=== PATIENT | female | born 1995 | race Caucasian/White ===

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

== ENCOUNTER 2017-04-20 11:08 | Emergency (ER) | payer OTHER ==
[~2017-04-20] VITALS: Ht 167.6 cm; Wt 57.0 kg
[~2017-04-20 11:08] MED LIST: BCPILLS PO; MONT1TAB5 PO
[2017-04-20 11:12] VITALS: TEMP 36.5; Ht 167.6 cm; Wt 57.0 kg
[2017-04-20] MEDS ORDERED: ONDANSETRON INJ 2 MG/ML 2 ML VIAL IV STA (11:47)
[2017-04-20] MEDS ORDERED: MoRPHine SULFATE 4 MG/ML 1 ML CARP\\VIAL IV STA (11:47)
[2017-04-20] MEDS ORDERED: SODIUM CHLORIDE 0.9% 1000ML 1,000 ML IV STA (11:47)
[2017-04-20 12:26] LABS: BASO % 0.5 %; BASO ABS # 0.03 K/uL (0-0.2); COMPLETE YES; HEMATOCRIT 38.8 % (37-47); IG% 0.2 %; LYMPH % 29.8 %; LYMPH ABS # 1.65 K/uL (1.2-3.4); MEAN CORPUSCULAR HEMOGLOBIN 30.2 pg (25-34); MEAN CORPUSCULAR HGB CONC 35.1 g/dl (32-36); MEAN PLATELET VOLUME 10.8 fL (7.4-10.4); MONO % 8.5 %; PLATELET COUNT 191 K/uL (130-400); RED BLOOD COUNT 4.51 M/uL (4.2-5.4); WHITE BLOOD COUNT 5.54 K/uL (4.8-10.8)
[2017-04-20 12:28] LABS: PREG INTERNAL NEGATIVE QC NEG CLEAR BACKGROUND; PREG INTERNAL POSITIVE QC POS CONTROL LINE
[2017-04-20 12:37] LABS: URINE APPEARANCE CLEAR (CLEAR); URINE BILIRUBIN NEG (NEG); URINE COLOR DK YELLOW; URINE EPITHELIAL CELL AUTO >30 /lpf (0-5); URINE NITRITE NEG (NEG); URINE PH 8.5 (4.5-7.5); URINE SPECIFIC GRAVITY 1.023 (1.000-1.030); UROBILINOGEN NEG (NEG)
[2017-04-20 12:47] LABS: MANUAL MICROSCOPIC REQUIRED? NO; REVIEW REQ? NO; SULFASALICYLIC ACID NEG (NEG)
[2017-04-20 12:49] LABS: BUN/CREATININE RATIO 19.7 (10-20); CALCIUM 8.8 mg/dl (8.5-10.1); CREATININE 0.73 mg/dl (0.60-1.20); POTASSIUM 3.6 mmol/L (3.5-5.1)
--- NOTE | 2017-04-20 12:51 | DIAGNOSTIC IMAGING REPORT ---
PA CHEST WITH ABDOMINAL SERIES CLINICAL HISTORY: Generalized abdominal pain. FINDINGS: A PA chest radiograph is obtained. No prior studies are available for comparison at the time of dictation. The cardiomediastinal silhouette is unremarkable. The lungs and pleural spaces are clear. No pneumothorax is seen. The bony thorax is grossly intact. There is mild S-shaped thoracolumbar scoliosis. Supine and erect abdominal radiographs are obtained. No prior studies are available for comparison at the time of dictation. There is a nonobstructed abdominal bowel gas pattern. Moderate to severe constipation is noted. No evidence of intraperitoneal free air is seen. There are no abnormal abdominal calcifications. The lumbosacral spine and bony pelvis appear intact. IMPRESSION: 1. No active disease in the chest. 2. Nonobstructed abdominal bowel gas pattern noting moderate to severe constipation. Electronically signed by: Fernando Reyes M.D. 04/20/2017 12:49 PM Dictated Date/Time: 04/20/2017 12:48 PM
--- NOTE | 2017-04-20 13:41 | DIAGNOSTIC IMAGING REPORT ---
PELVIC COMPLETE NON OB CLINICAL HISTORY: ABDOMINAL PAIN/N/V/D PAIN. NAUSEA. COMPARISON STUDY: 07/08/2016 FINDINGS: The uterus measured 6.9 cm. The endometrial stripe measured 8 mm. The right ovary measured 2.5 cm with normal vascular flow The left ovary measured 2.6 cm with normal vascular flow. There is no ultrasonographic evidence of ovarian torsion. It should be noted that ovarian torsion can be present with normal Doppler ultrasonographic findings. There was no evidence of pathologic free pelvic fluid. IMPRESSION: Negative pelvic ultrasound The above report was generated using voice recognition software. It may contain grammatical, syntax or spelling errors. Electronically signed by: Vik Drew M.D. 04/20/2017 1:40 PM Dictated Date/Time: 04/20/2017 1:39 PM
[2017-04-20 13:45] VITALS: BP 96/60; PULSE 67; O2SAT 98
--- NOTE | 2017-04-20 17:13 | EMERGENCY ROOM VISIT NOTE ---
ED Visit Note First contact with patient: 11:37 Chief Complaint: I'm having stomach and chest pain. History of Present Illness: Ms. Calderon is a 22 year-old white female who ambulates into the ED complaining of suprapubic abdominal pain and chest pain. Historically patient reports no significant gastrointestinal diseases or abdominal surgeries. Patient reports a acute onset of suprapubic abdominal pain that started approximately 1.5 hours ago. Since that time the pain has been constant. The pain is currently described as sharp. The pain is radiating superiorly through the mid abdomen and into her chest. She rates her discomfort 7/10. She reports her pain worsens when she is lying supine on her back and has minimal relief when she is lying on the right side of her body. She has not taken any medication for pain prior to arrival at the hospital. She denies any associated symptoms including fevers, chills, sweats, skin eruptions, skin color changes, upper respiratory tract symptoms, shortness of breath, palpitations, orthopnea, dependent edema, previous clots, claudication, cramping , recent surgery/inactivity/extended travel, estrogen/tobacco use, decreased appetite, nausea, vomiting, diarrhea, constipation, rectal bleeding, black/ tarry stools, urinary symptoms, hematuria, vaginal bleeding, vaginal discharge, back/flank pain. On reevaluation of the patient after testing she does report she has not moved her bowels in the last 4 days. Review of Systems: As noted above in history of present illness. All body systems were reviewed and found to be negative as noted above. Past Medical History: Pneumonia. Current Medications: Patient denies. Allergies to Medications: Patient denies. 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 Physical Examination: Vital Signs: Date Time Temp Pulse Resp B/P (MAP) Pulse Ox O2 Delivery O2 Flow Rate FiO2 04/20/17 13:45 67 16 96/60 98 04/20/17 12:13 72 04/20/17 11:12 36.5 61 24 109/71 100 Room Air GENERAL: 22-year-old female in moderate distress due to pain, nontoxic-appearing , afebrile and hemodynamically stable. Patient was found lying on the bed writhing in discomfort. NEUROLOGICAL: Awake, alert and oriented to person, place and time. Answering questions appropriately and following commands. Normal gait. Good hand eye coordination. SKIN: Warm, dry and pink. No soft tissue eruptions or trauma noted. HEENT: Atraumatic and normocephalic. PERRLA. Sclera white and conjunctiva pink. Oral cavity moist and pink. Pharynx is nonerythematous or edematous. Speech normal. No lymphadenopathy. Trachea midline. No jugular venous distention. BACK: No tenderness over the bony spine. No CVA tenderness. THORAX: Lungs sounds are clear to auscultation and equal bilaterally with symmetrical chest wall. No wheezing, rales or rhonchi. No crepitus, tenderness , subcutaneous air or deformities noted. HEART: Regular rate and rhythm. No gallops, rubs or murmurs are appreciated. ABDOMEN: Flat, soft and nontender. Positive bowel sounds in all quadrants. No guarding, rigidity or organomegaly. EXTREMITIES: Moves all extremities well on command and with purpose. All distal neurovascular statuses are intact and equal bilaterally. ED Course: Patient is assessed as noted above. Laboratory Testing: Test 04/20/17 11:25 04/20/17 11:35 04/20/17 12:12 Range/Units Urine Color DK YELLOW Urine Appearance CLEAR CLEAR Urine pH 8.5 4.5-7.5 Urine Specific [place] 1.023 1.000-1.030 Urine Protein NEG NEG Urine Glucose (UA) NEG NEG Urine Ketones TRACE NEG Urine Occult Blood NEG NEG Urine Nitrite NEG NEG Urine Bilirubin NEG NEG Urine Urobilinogen NEG NEG Urine Leukocyte Esterase TRACE NEG Urine WBC (Auto) 1-5 0-5 /hpf Urine RBC (Auto) 0-4 0-4 /hpf Urine Hyaline Casts (Auto) 5-10 0-5 /lpf Urine Epithelial Cells (Auto) >30 0-5 /lpf Urine Bacteria (Auto) NEG NEG White Blood Count 5.54 4.8-10.8 K/uL Red Blood Count 4.51 4.2-5.4 M/uL Hemoglobin 13.6 12.0-16.0 g/dL Hematocrit 38.8 37-47 % Mean Corpuscular Volume 86.0 80-100 fL Mean Corpuscular Hemoglobin 30.2 25-34 pg Mean Corpuscular Hemoglobin Concent 35.1 32-36 g/dl Platelet Count 191 130-400 K/uL Mean Platelet Volume 10.8 7.4-10.4 fL Neutrophils (%) (Auto) 59.0 % Lymphocytes (%) (Auto) 29.8 % Monocytes (%) (Auto) 8.5 % Eosinophils (%) (Auto) 2.0 % Basophils (%) (Auto) 0.5 % Neutrophils # (Auto) 3.27 1.4-6.5 K/uL Lymphocytes # (Auto) 1.65 1.2-3.4 K/uL Monocytes # (Auto) 0.47 0.11-0.59 K/uL Eosinophils # (Auto) 0.11 0-0.5 K/uL Basophils # (Auto) 0.03 0-0.2 K/uL RDW Standard Deviation 39.0 36.4-46.3 fL RDW Coefficient of Variation 12.4 11.5-14.5 % Immature Granulocyte % (Auto) 0.2 % Immature Granulocyte # (Auto) 0.01 0.00-0.02 K/uL Sodium Level 138 136-145 mmol/L Potassium Level 3.6 3.5-5.1 mmol/L Chloride Level 106 98-107 mmol/L Carbon Dioxide Level 23 21-32 mmol/L Anion Gap 10.0 3-11 mmol/L Blood Urea Nitrogen 14 7-18 mg/dl Creatinine 0.73 0.60-1.20 mg/dl Est Creatinine Clear Calc Drug Dose 110.6 ml/min Estimated GFR () 137.4 Estimated GFR (Non- 118.6 BUN/Creatinine Ratio 19.7 10-20 Random Glucose 81 70-99 mg/dl Calcium Level 8.8 8.5-10.1 mg/dl Total Bilirubin 1.6 0.2-1 mg/dl Direct Bilirubin 0.3 0-0.2 mg/dl Aspartate Amino Transf (AST/SGOT) 16 15-37 U/L Alanine Aminotransferase (ALT/SGPT) 15 12-78 U/L Alkaline Phosphatase 57 45-117 U/L Total Protein 7.3 6.4-8.2 gm/dl Albumin 3.9 3.4-5.0 gm/dl Lipase 122 73-393 U/L Human Chorionic Gonadotropin, Qual NEG NEG Bedside Troponin I < 0.030 0-0.045 ng/ml Acute Abdominal X-Ray Series: Was read by myself and the radiologist showing a normal appearing PA chest with no signs of infiltrates, effusions or pneumothorax. Normal heart silhouette and bony anatomy. Radiologist noted a mild S-shaped scoliosis. Abdominal component shows a nonobstructive bowel gas pattern, no free air and moderate to severe constipation. Pelvic Ultrasound: Was reviewed by myself and read by the radiologist showing a negative pelvic ultrasound with normal-appearing uterus, endometrial stripe, ovaries with normal vascular flow and no evidence of free pelvic fluid. EKG: Was read by myself and shows normal sinus rhythm with a ventricular rate of 63 bpm. She does have sinus arrhythmia. No acute ST changes indicating ischemia, injury or infarction. Medical records were reviewed and no previous EKGs were on file for comparison. Patient was hydrated with normal saline and received 4 mg of Zofran IV and 4 mg of morphine IV. Patient was reassessed multiple times during her stay in the emergency department. Patient's case was reviewed with Dr. Christopher; we agreed on diagnostic approach, treatment, disposition and plan. On my last reassessment of the patient she felt her pain was slightly more intense on the right than the left. On reevaluation of her abdomen remained soft and pain-free. Patient was educated about today's findings and instructed on her treatment plan ; she verbalizes understanding and agreement with this plan. Clinical Impression: Pelvic pain. Chest pain. Constipation. Decision-Making: Initially my differential diagnosis I considered ovarian cyst rupture, ovarian torsion, ectopic , appendectomy, bowel obstruction, constipation, pneumothorax, pericarditis and other causes. Disposition: Patient discharged home in stable condition; prior to departure she was reassessed and subjectively reported she was feeling much better and rated her discomfort 2/10. Plan: Patient was encouraged to alternate ibuprofen and acetaminophen every 6 hours as needed for pain. Patient was encouraged to continue any other prescribed medications. Patient was encouraged use [id number] Colace and MiraLAX; she was instructed on their use. Patient was encouraged to stay well-hydrated with increased clear fluids and increase dietary fruits and fibers. Patient was encouraged to follow-up at [facility] for recheck tomorrow and if she was unable to follow-up for recheck return to the ED. Patient is also encouraged return ED for worsening/uncontrolled pain, fevers, bloody vomitus, bloody stools or any new/concerning symptoms.
== END 2017-04-20 14:15 | disposition home or self-care (01) ==
LOC: C.EDB 11:10 → C.EDA 14:15
DX: R07.9 Chest pain, unspecified (principal); R10.2 Pelvic and perineal pain; K59.00 Constipation, unspecified